=== PATIENT | male | born 1980 | race Caucasian/White ===

== ENCOUNTER 2018-11-07 08:10 | Day surgery (SDC) | payer BC, MEDICAID ==
[~2018-11-07 08:10] MED LIST: NO HOME MEDS
[2018-11-07] MEDS ORDERED: LIDOcaine 1%/PF 5ML 10 MG/ML VIAL ONE (10:05)
--- NOTE | 2018-11-07 10:15 | NUR ---
Patient ambulated independently from [facility] and was admitted to outpatient wound care for physician visit with Narendra Crain MD. Wound cleansed. New patient assessment completed with review of patient's medical history and current medication list (no meds). 1005 - Dr. Crain at bedside accompanied by RN. Wound assessed, time out performed by MD/RN. Procedure performed as detailed in the physician progress/procedure note. Plan of care discussed with patient. Dressings placed per MD orders. Patient instructed on the signs and symptoms of infection and to call the Wound Center if any occur or to go to the ED if we are closed: Increased pain in wound Increase in drainage from the wound Redness in the skin surrounding the wound Bleeding from the wound Temperature of 101 or greater Patient instructed that the weight of their body puts a large amount of pressure on their wounds. This pressure keeps the new tissue from growing and inhibits new blood vessels from forming. Explained that, if they continue to bear weight on a body part that has a wound, the time it takes to heal the wound increases, the wound may get worse or the wound may not heal at all. Patient verbalized understanding of all discharge instructions and plan of care and ambulated independently out to [facility] in stable condition with no sign or symptom of distress at time of discharge.
== END 2018-11-07 10:15 | disposition home or self-care (01) ==
LOC: WOUND CARE 08:10
PROVIDERS: ATTEND Surgery
DX: S80.11XA Contusion of right lower leg, initial encounter (principal); F17.200 Nicotine dependence, unspecified, uncomplicated; F12.10 Cannabis abuse, uncomplicated; W22.8XXA Striking against or struck by other objects, initial encounter; Y93.89 Activity, other specified; Y92.017 Garden or yard in single-family (private) house as the place of occurrence of the external cause
CPT/HCPCS: 10160; 87070; 87075; 87102; J2001

== ENCOUNTER 2018-11-15 09:17 | Outpatient (CLI) | payer MEDICAID ==
--- NOTE | 2018-11-15 11:00 | NUR ---
Patient ambulated independently from [facility] and was admitted to outpatient wound care for physician visit with Narendra Crain MD. Patient reports some 'pressure' in his right lower leg, no open wound. Patient assessed for changes in conditions, medications and medical history. 0923 - Dr. Crain at bedside accompanied by RN. Leg assessed, ultrasound xray ordered and performed. Plan of care discussed with patient by MD. No dressings ordered or placed, patient to follow up with MD at his office. Patient verbalized understanding of all discharge instructions and plan of care and ambulated independently out to [facility] in stable condition with no sign or symptom of distress at time of discharge.
== END 2018-11-15 11:00 | disposition home or self-care (01) ==
LOC: WOUND CARE 09:17 → EDSTATUS 09:30 → WOUND CARE 11:00
PROVIDERS: ATTEND Surgery
DX: S80.11XD Contusion of right lower leg, subsequent encounter (principal); W22.8XXD Striking against or struck by other objects, subsequent encounter
CPT/HCPCS: 76881; G0463

== ENCOUNTER 2019-01-18 08:10 | Outpatient (CLI) | payer BC, MEDICAID ==
--- NOTE | 2019-01-18 13:07 | NUR ---
Patient ambulated independently from [facility] and was admitted to outpatient wound care clinic for first time return visit with physician. Patient assessed for changes in conditions and medications and medical history reviewed. Dr. Crain at bedside accompanied by RN. Wound assessed and no debridement was done. Patient scheduled for surgery for evacuation of hematoma tomorrow 01/19/19. Patient instructed on the signs and symptoms of infection and to call the Wound Center if any occur or to go to the ED if we are closed: Increased pain in wound Increase in drainage from the wound Redness in the skin surrounding the wound Bleeding from the wound Temperature of 101 or greater Patient instructed that the weight of their body puts a large amount of pressure on their wounds. This pressure keeps the new tissue from growing and inhibits new blood vessels from forming. Explained that, if they continue to bear weight on a body part that has a wound, the time it takes to heal the wound increases, the wound may get worse or the wound may not heal at all. Patient verbalized understanding of all discharge instructions and plan of care and ambulated independently out to [facility] in stable condition with no sign or symptom of distress at time of discharge. Addendum: 01/18/19 at 1330 by Gabbi Meza RN Amended: Links added.
== END 2019-01-18 10:10 | disposition home or self-care (01) ==
LOC: WOUND CARE 08:10 → EDSTATUS 08:30 → WOUND CARE 10:10
PROVIDERS: ATTEND Surgery
DX: S80.11XD Contusion of right lower leg, subsequent encounter (principal); W22.8XXD Striking against or struck by other objects, subsequent encounter
CPT/HCPCS: 76882; G0463

== ENCOUNTER 2019-01-19 10:52 | Day surgery (SDC) | payer BC, MEDICAID ==
[~2019-01-19] VITALS: Ht 177.8 cm; Wt 93.0 kg
[2019-01-19] VITALS (7 sets, daily range): BP systolic 133–161; BP diastolic 74–94
[2019-01-19] MEDS ORDERED: ringers solution, lacted 1,000 ML IV SCH ×2 (11:30→13:42)
[2019-01-19] MEDS ORDERED: albuterol 2.5 MG/3 ML nebule NEB ONE (11:30)
[2019-01-19] MEDS ORDERED: famotidine 20mg tablet PO ONE (11:30)
[2019-01-19] MEDS ORDERED: cefazolin/dext.iso 2gm/100 ML IV ONE (11:30)
[2019-01-19 11:56] LABS: BASOPHILS % (AUTO) 0.6 % (0-1); EOSINOPHILS # (AUTO) 0.1 X10'3 (0-0.9); EOSINOPHILS % (AUTO) 2.4 % (0-6); LYMPHOCYTES # (AUTO) 1.9 X10'3 (1.1-4.8); LYMPHOCYTES % (AUTO) 30.5 % (21-51); MEAN CORPUSCULAR HEMOGLOBIN 30.1 PG (27.0-31.0); MEAN CORPUSCULAR HGB CONC 33.9 g/dL (33.0-36.5); MEAN CORPUSCULAR VOLUME 88.9 FL (78-98); MEAN PLATELET VOLUME 8.5 FL (7.4-10.4); MONOCYTES # (AUTO) 0.4 X10'3 (0-0.9); MONOCYTES % (AUTO) 6.5 % (2-12); NEUTROPHILS # (AUTO) 3.7 X10'3 (1.8-7.7); PRE OP HEMATOCRIT 43.4 % (42.0-52.0); PRE OP HEMOGLOBIN 14.7 g/dL (14.0-17.9); PRE OP PLATELET COUNT 216 X10'3 (140-440); RED BLOOD COUNT 4.88 X10'6 (4.70-6.10)
[2019-01-19] MEDS ORDERED: ceFAZolin 1000mg inj ONE (11:56)
[2019-01-19] MEDS ORDERED: BUPIVAcaine/PF 2.5 mg/ml (0.25%) 30ml vial ONE (11:56)
[2019-01-19 12:10] LABS: ALBUMIN 3.9 G/DL (3.4-5.0); ALBUMIN/GLOBULIN RATIO 1.1 (1.1-1.5); ALKALINE PHOSPHATASE 78 IU/L (46-116); BLOOD UREA NITROGEN 15 MG/DL (7-18); BUN/CREATININE RATIO 17.9 (5.4-32.0); CHLORIDE 106 MMOL/L (99-107); CREATININE 0.84 MG/DL (0.60-1.10); PRE OP ALT 32 U/L (30-65); PRE OP ANION GAP 7 (8-16); PRE OP AST 16 U/L (10-37); PRE OP BILIRUB, TOTAL 0.3 MG/DL (0.0-1.0); PRE OP GLUCOSE 98 MG/DL (70-104); PRE OP SODIUM 139 MMOL/L (135-145); TOTAL CARBON DIOXIDE 25.8 MMOL/L (24-32); TOTAL PROTEIN 7.4 G/DL (6.4-8.2); eGFR > 90 ML/MIN
[2019-01-19] MEDS ORDERED: fentaNYL/PF 50MCG/1 ML 2ML syringe ONE (13:29)
[2019-01-19] MEDS ORDERED: midazolam 2 mg/2 ml injection ONE (13:29)
[2019-01-19] MEDS ORDERED: sevoflurane 250ml liquid IH ONE (13:30)
[2019-01-19] MEDS ORDERED: meperidine/PF 25mg/ml syringe IV PRN ×3 (13:45)
[2019-01-19] MEDS ORDERED: ondansetron/PF 4mg/2ml inj IV PRN (13:45)
[2019-01-19] MEDS ORDERED: proCHLORperazine 10 MG/2 ml inj IV PRN (13:45)
[2019-01-19] MEDS ORDERED: morphine 4 MG/ML inj SYRINge IV PRN ×2 (13:45)
[2019-01-19] MEDS ORDERED: LIDOcaine 2% (20mg/ml) 5ml vial ONE (13:57)
[2019-01-19] MEDS ORDERED: propofol inj 20 ML IV ONE (13:57)
[2019-01-19] MEDS ORDERED: dexamethasone sod phosphate 4mg/ml inj. ONE (13:58)
[2019-01-19] MEDS ORDERED: ondansetron/PF 4mg/2ml inj ONE (13:58)
[2019-01-19] MEDS ORDERED: meperidine/PF 50mg/ml syringe ONE (14:15)
--- NOTE | 2019-01-19 14:25 | NUR ---
Received from OR via BED, accompanied by Anesthesiologist DR MACKENZIE-- and report given by Anesthesiolgist. PATIENT A&OX4, DENIES PAIN, V/S WNL, NEUROVASCULAR CHECKS INTACT, 20G PIV RUE, SCD ON, RIGHT KNEE DRESSING W/ GEORGINA DRAIN CDI
--- NOTE | 2019-01-19 15:15 | NUR ---
PATIENT A&OX4, STATES PAIN WNL, CSM INTACT, PIV D/C, SCD OFF, DRESSING TO RIGHT LEG CDI WITH ANGELINA DRAIN INTACT. pATIENT WAS GIVEN INSTRUCTIONS ON HOW TO DRAIN ANGELINA AND REAPPLY SUCTION AND WAS ABLE TO VERBALIZE UNDERSTANDING. I HAVE REVIEWED D/C INSTRUCTIONS WITH PATIENT AND FAMILY AND THEY HAVE VERBALIZED UNDERSTANDING. TYLENOL #3 CALLED INTO [facility] FOR PAIN CONTRIOL.PATIENT D/C HOME WITH ALL BELONGINGS AND FAMILY GAVE TRANSPORT HOME.
== END 2019-01-19 15:15 | disposition home or self-care (01) ==
LOC: PAS 10:52
PROVIDERS: ATTEND Surgery
DX: M79.81 Nontraumatic hematoma of soft tissue (principal); F17.210 Nicotine dependence, cigarettes, uncomplicated
CPT/HCPCS: 27603; 36415; 80053; 85025; 87070; 87075; J0690; J1100; J2001; J2175; J2250; J2405; J2704; J3010; J3490; A6446; A6449; A7000; J7120

== ENCOUNTER 2019-01-23 08:20 | Outpatient (CLI) | payer BC, MEDICAID ==
--- NOTE | 2019-01-23 16:26 | NUR ---
0800 Patient ambulated safely into [facility]. Patient admitted to outpatient wound care clinic for follow-up visit with physician. Dressing removed, wound cleansed. Patient assessed for changes in conditions, medications and medical history. Patient showed no s/s of distress at time of assessment. 0955 at bedside accompanied by RN. Wound assessed, as detailed in the physician progress/procedure note. Plan of care discussed with patient. Physician pulled ANGELINA tube. Dressings placed per MD orders. Patient instructed on the signs and symptoms of infection and to call the Wound Center if any occur or to go to the ED if we are closed: Increased pain in wound Increase in drainage from the wound Redness in the skin surrounding the wound Bleeding from the wound Temperature of 101 or greater Patient verbalized understanding of all discharge instructions and plan of care. Patient ambulated independently out to [facility] and is in stable condition with no sign or symptom of distress at time of discharge.
== END 2019-01-23 09:59 | disposition home or self-care (01) ==
LOC: WOUND CARE 08:20 → EDSTATUS 08:30 → WOUND CARE 09:59
PROVIDERS: ATTEND Surgery
DX: S80.11XD Contusion of right lower leg, subsequent encounter (principal); W22.8XXD Striking against or struck by other objects, subsequent encounter
CPT/HCPCS: A6446; G0463

== ENCOUNTER 2019-01-30 08:25 | Outpatient (CLI) | payer BC, MEDICAID ==
[2019-01-30] MEDS ORDERED: LIDOcaine/PRILOcaine 5gm cream TP ONE (09:19)
[2019-01-30] MEDS ORDERED: mupirocin 2% ointment 22GM ONE (10:12)
--- NOTE | 2019-01-30 10:30 | NUR ---
Patient ambulated independently from [facility] and was admitted to outpatient wound care for physician visit with Narendra Crain MD. Dressing removed, wound cleansed and Emla cream applied per order. Patient assessed for changes in conditions, medications and medical history. 1005 - Dr. Crain at bedside accompanied by RN. Wound assessed by MD as detailed in the physician progress/procedure note. Plan of care discussed with patient. Dressings placed per MD orders. Patient instructed on the signs and symptoms of infection and to call the Wound Center if any occur or to go to the ED if we are closed: Increased pain in wound Increase in drainage from the wound Redness in the skin surrounding the wound Bleeding from the wound Temperature of 101 or greater Patient instructed that the weight of their body puts a large amount of pressure on their wounds. This pressure keeps the new tissue from growing and inhibits new blood vessels from forming. Explained that, if they continue to bear weight on a body part that has a wound, the time it takes to heal the wound increases, the wound may get worse or the wound may not heal at all. Patient verbalized understanding of all discharge instructions and plan of care and ambulated independently out to [facility] in stable condition with no sign or symptom of distress at time of discharge.
[2019-01-30] MEDS ORDERED: ACET1TAB12 PO (15:32)
== END 2019-01-30 10:22 | disposition home or self-care (01) ==
LOC: WOUND CARE 08:25 → EDSTATUS 08:30 → WOUND CARE 10:22
PROVIDERS: ATTEND Surgery
DX: T81.89XD Other complications of procedures, not elsewhere classified, subsequent encounter (principal); L76.22 Postprocedural hemorrhage of skin and subcutaneous tissue following other procedure; F17.210 Nicotine dependence, cigarettes, uncomplicated; Y83.8 Other surgical procedures as the cause of abnormal reaction of the patient, or of later complication, without mention of misadventure at the time of the procedure
CPT/HCPCS: A6446; G0463

== ENCOUNTER 2019-02-06 08:00 | Outpatient (CLI) | payer BC, MEDICAID ==
[~2019-02-06 08:00] MED LIST changes: +ACET1TAB12 PO; -NO HOME MEDS
[2019-02-06] MEDS ORDERED: LIDOcaine/PRILOcaine 5gm cream TP ONE (09:03)
--- NOTE | 2019-02-06 12:36 | NUR ---
Patient ambulated independently from [facility] and was admitted to outpatient wound care for physician visit with Narendra Crain MD. Dressing removed, wound cleansed and Emla cream applied per order. Patient assessed for changes in conditions, medications and medical history. Dr. Crain at bedside accompanied by RN. Wound assessed and no debridement was done. Wound healed out and patient was discharged. Patient instructed on the signs and symptoms of infection and to call the Wound Center if any occur or to go to the ED if we are closed: Increased pain in wound Increase in drainage from the wound Redness in the skin surrounding the wound Bleeding from the wound Temperature of 101 or greater Patient instructed that the weight of their body puts a large amount of pressure on their wounds. This pressure keeps the new tissue from growing and inhibits new blood vessels from forming. Explained that, if they continue to bear weight on a body part that has a wound, the time it takes to heal the wound increases, the wound may get worse or the wound may not heal at all. Patient verbalized understanding of all discharge instructions and plan of care and ambulated independently out to [facility] in stable condition with no sign or symptom of distress at time of discharge. Addendum: 02/06/19 at 1239 by Gabbi Meza RN Amended: Links added.
== END 2019-02-06 10:00 | disposition home or self-care (01) ==
LOC: WOUND CARE 08:00 → EDSTATUS 08:30 → WOUND CARE 10:00
PROVIDERS: ATTEND Surgery
DX: T81.89XD Other complications of procedures, not elsewhere classified, subsequent encounter (principal); M79.81 Nontraumatic hematoma of soft tissue; F17.210 Nicotine dependence, cigarettes, uncomplicated; Y83.8 Other surgical procedures as the cause of abnormal reaction of the patient, or of later complication, without mention of misadventure at the time of the procedure
CPT/HCPCS: G0463

== ENCOUNTER 2019-02-27 08:20 | Day surgery (SDC) | payer BC, MEDICAID ==
--- NOTE | 2019-02-27 14:55 | NUR ---
Patient ambulated independently from [facility] and was admitted to outpatient wound care for physician visit with Narendra Crain MD. No wound over surgical site to right leg; patient here for recurrent swelling and pain. Patient assessed for changes in conditions, medications and medical history. 1030 - Dr. Crain at bedside accompanied by RN. Wound assessed, time out performed by MD/RN. Procedure performed as detailed in the physician progress/procedure note. Plan of care discussed with patient. Dressings placed per MD orders. Patient instructed on the signs and symptoms of infection and to call the Wound Center if any occur or to go to the ED if we are closed: Increased pain in wound Increase in drainage from the wound Redness in the skin surrounding the wound Bleeding from the wound Temperature of 101 or greater Patient instructed that the weight of their body puts a large amount of pressure on their wounds. This pressure keeps the new tissue from growing and inhibits new blood vessels from forming. Explained that, if they continue to bear weight on a body part that has a wound, the time it takes to heal the wound increases, the wound may get worse or the wound may not heal at all. Patient verbalized understanding of all discharge instructions and plan of care and ambulated independently out to [facility] in stable condition with no sign or symptom of distress at time of discharge.
== END 2019-02-27 10:51 | disposition home or self-care (01) ==
LOC: WOUND CARE 08:20
PROVIDERS: ATTEND Surgery
DX: T81.89XD Other complications of procedures, not elsewhere classified, subsequent encounter (principal); M79.81 Nontraumatic hematoma of soft tissue; F17.210 Nicotine dependence, cigarettes, uncomplicated; Y83.8 Other surgical procedures as the cause of abnormal reaction of the patient, or of later complication, without mention of misadventure at the time of the procedure; Y92.89 Other specified places as the place of occurrence of the external cause; M79.661 Pain in right lower leg
CPT/HCPCS: 87070; 87075; 87102; A4215

== ENCOUNTER 2019-03-06 08:55 | Outpatient (CLI) | payer BC, MEDICAID ==
--- NOTE | 2019-03-06 14:46 | NUR ---
Patient ambulated independently from [facility] and was admitted to outpatient wound care for physician visit with Narendra Crain MD. Patient assessed for changes in conditions, medications and medical history. Dr. Crain at bedside accompanied by RN. Wound assessed and no debridement was done. ordered a needle biopy to right calf to be done by IR. through [facility]. Patient instructed on the signs and symptoms of infection and to call the Wound Center if any occur or to go to the ED if we are closed: Increased pain in wound Increase in drainage from the wound Redness in the skin surrounding the wound Bleeding from the wound Temperature of 101 or greater Patient instructed that the weight of their body puts a large amount of pressure on their wounds. This pressure keeps the new tissue from growing and inhibits new blood vessels from forming. Explained that, if they continue to bear weight on a body part that has a wound, the time it takes to heal the wound increases, the wound may get worse or the wound may not heal at all. Patient verbalized understanding of all discharge instructions and plan of care and ambulated independently out to [facility] in stable condition with no sign or symptom of distress at time of discharge. Addendum: 03/06/19 at 1449 by Gabbi Meza RN Amended: Links added.
[2019-03-06] MEDS ORDERED: gadopentetate dimeglumine 10 MMOL/20 ML syringe IV ONE (16:39)
== END 2019-03-06 12:10 | disposition home or self-care (01) ==
LOC: RAD 08:55 → EDSTATUS 10:00 → RAD 12:10
PROVIDERS: ATTEND Surgery
DX: T81.89XA Other complications of procedures, not elsewhere classified, initial encounter (principal); S80.11XA Contusion of right lower leg, initial encounter
CPT/HCPCS: 73718; A9579; G0463; A4663

== ENCOUNTER 2019-03-13 11:16 | Day surgery (SDC) | payer BC, MEDICAID ==
[~2019-03-13] VITALS: Ht 177.8 cm; Wt 95.6 kg
[2019-03-13] VITALS (9 sets, daily range): BP systolic 97–142; BP diastolic 47–80
[2019-03-13] MEDS ORDERED: fentaNYL/PF 50MCG/1 ML 2ML syringe IV ONE (11:45)
[2019-03-13] MEDS ORDERED: MIDAZolam 5mg/ml 2ml vial IV ONE (11:45)
[2019-03-13] MEDS ORDERED: normal saline 1000ml 1,000 ML IV PRN (11:45)
[2019-03-13 12:15] LABS: BASOPHILS % (AUTO) 0.9 % (0-1); EOSINOPHILS # (AUTO) 0.1 X10'3 (0-0.9); EOSINOPHILS % (AUTO) 1.9 % (0-6); HEMATOCRIT 45.1 % (42.0-52.0); HEMOGLOBIN 15.4 g/dl (14.0-17.9); LYMPHOCYTES # (AUTO) 1.7 X10'3 (1.1-4.8); LYMPHOCYTES % (AUTO) 33.2 % (21-51); MEAN CORPUSCULAR HEMOGLOBIN 30.3 PG (27.0-31.0); MEAN CORPUSCULAR HGB CONC 34.2 g/dL (33.0-36.5); MEAN CORPUSCULAR VOLUME 88.6 FL (78-98); MEAN PLATELET VOLUME 8.5 FL (7.4-10.4); MONOCYTES # (AUTO) 0.3 X10'3 (0-0.9); MONOCYTES % (AUTO) 6.7 % (2-12); NEUTROPHILS # (AUTO) 2.9 X10'3 (1.8-7.7); NEUTROPHILS % (AUTO) 57.3 % (42-75); PLATELET COUNT 210 X10'3 (140-440); RED BLOOD COUNT 5.09 X10'6 (4.70-6.10); RED CELL DISTRIBUTION WIDTH 14.1 % (11.5-14.5)
[2019-03-13] MEDS ORDERED: fentaNYL/PF 50MCG/1 ML 2ML syringe ONE (13:29)
[2019-03-13] MEDS ORDERED: midazolam 2 mg/2 ml injection ONE (13:32)
== END 2019-03-13 14:33 | disposition left against medical advice (07) ==
LOC: SSTAY O 11:16
PROVIDERS: ATTEND Radiology Vascular & Interventional Radiology
DX: C40.21 Malignant neoplasm of long bones of right lower limb (principal); C76.51 Malignant neoplasm of right lower limb; F12.90 Cannabis use, unspecified, uncomplicated; F17.210 Nicotine dependence, cigarettes, uncomplicated; Z79.899 Other long term (current) drug therapy
CPT/HCPCS: 20206; 36415; 76942; 85025; J2250; J3010; J7030; 99152; 99153